=== PATIENT | female | born 1950 | race Caucasian/White ===

== ENCOUNTER 2020-01-20 11:41 | Outpatient (CLI) | payer MEDICARE, OTHER ==
--- NOTE | 2020-01-20 13:06 | RAD ---
FOUR VIEWS LEFT KNEE: DATE: 01/20/2020. PROVIDED CLINICAL HISTORY: Left medial knee pain. FINDINGS: There is no evidence for a fracture or other acute osseous abnormality. Tricompartmental osteophyte formation is demonstrate, predominating involving the medial femorotibial joint. Mild medial femorot ibial joint space narrowing. Intraarticular bodies within Madison's cyst demonstrated, the larger of w hich measures about a centimeter. No significant knee joint capsular distention is evident. Vascula r calcifications are seen. IMPRESSION: Degenerative arthrosis involving the left knee with intraarticular bodies seen within expected locati on of Madison's cyst. POS: JORGE
== END 2020-01-20 11:42 | disposition home or self-care (01) ==
LOC: BICRAD 11:41
PROVIDERS: ATTEND Internal Medicine Rheumatology
DX: M25.562 Pain in left knee (principal); M17.12 Unilateral primary osteoarthritis, left knee; M71.22 Synovial cyst of popliteal space [Baker], left knee